=== PATIENT | male | born 2000 | race Hispanic/Latino ===

== ENCOUNTER 2021-01-02 03:36 | Emergency (ER) | payer OTHER ==
[2021-01-02] MEDS ORDERED: IOHEXOL-350 75 ML VIAL IV ONE (04:08)
[2021-01-02 04:13] LABS: BASOPHILS % (AUTO) 0.5 % (0.0-5.0); HEMATOCRIT 46.5 % (42-54); LYMPHOCYTES % (AUTO) 10.7 % (21.0-51.0); MEAN CORPUSCULAR HEMOGLOBIN 30.4 pg (27.0-33.0); MEAN CORPUSCULAR HGB CONC 34.4 g/dL (32.0-36.0); MEAN CORPUSCULAR VOLUME 88.4 fL (80-100); MONOCYTES % (AUTO) 3.8 % (3.0-13.0); NEUTROPHILS % (AUTO) 83.2 % (40.0-77.0); PLATELET COUNT (AUTO) 283 K/uL (130-400); RED BLOOD CELL COUNT(AUTO) 5.26 MIL/uL (4.50-6.20); RED CELL DISTRIBUTION WIDTH 12.1 % (11.0-15.5); WHITE BLOOD COUNT (AUTO) 22.9 K/uL (4.8-10.8)
[2021-01-02 04:21] LABS: CREATININE 1.1 mg/dL (0.5-1.5); POTASSIUM 3.7 mmol/L (3.5-5.1)
[2021-01-02 04:25] LABS: ALBUMIN 4.7 g/dL (3.5-5.0); BILIRUBIN,TOTAL 0.9 mg/dL (0.2-1.0); TOTAL PROTEIN, SERUM 8.1 g/dL (6.0-8.3)
== END 2021-01-02 07:59 | disposition home or self-care (01) ==
LOC: EDH 03:36
DX: S90.02XA Contusion of left ankle, initial encounter (principal); S90.01XA Contusion of right ankle, initial encounter; S80.12XA Contusion of left lower leg, initial encounter; S80.11XA Contusion of right lower leg, initial encounter; W18.39XA Other fall on same level, initial encounter; Y93.39 Activity, other involving climbing, rappelling and jumping off; Y92.89 Other specified places as the place of occurrence of the external cause; Y99.8 Other external cause status
CPT/HCPCS: 36415; 70450; 71250; 72125; 73590 ×2; 73620 ×2; 74176; 80053; 85025; 86850; 86900; 86901; 96374; 99285; J1885; Q9967

== ENCOUNTER 2021-08-18 09:28 | Emergency (ER) | payer SELFPAY ==
[~2021-08-18] VITALS: Ht 157.5 cm; Wt 63.5 kg
[2021-08-18] MEDS ORDERED: AZITHROMYCIN 250 MG TABLET PO ONE (10:00)
[2021-08-18] MEDS ORDERED: CEFTRIAXONE 1G VIAL IM SCH (10:00)
[2021-08-18] MEDS ORDERED: LIDOCAINE HCL-MPF 1% 2ML VIAL ONE (10:12)
[2021-08-18 10:35] LABS: APPEARANCE,URINE Cloudy (CLEAR); BILIRUBIN,URINE Negative (NEGATIVE); COLOR,URINE Yellow (YELLOW); GLUCOSE, URINE (UA) Negative (NEGATIVE); KETONES,URINE Negative (NEGATIVE); LEUKOCYTE ESTERASE ,URINE Large (NEGATIVE); NITRATE,URINE Negative (NEGATIVE); OCCULT BLOOD,URINE Trace (NEGATIVE); PH,URINE 8.5 (5.0-8.0); PROTEIN,URINE Negative (NEGATIVE); UROBILINOGEN,URINE 0.2 mg/dL (0.2-1.0)
[2021-08-18] MEDS ORDERED: DOXY100T21 PO (10:36)
[2021-08-18] MEDS ORDERED: PHEN-847 PO (10:36)
[2021-08-18 11:07] LABS: BACTERIA,URINE Rare /HPF (None Seen); SQUAMOUS EPITHELIAL CELL,UR None Seen /HPF (0-2)
[2021-08-18 11:13] VITALS: BP 125/78
[2021-08-20 18:09] LABS: CHLAMYDIA DNA N.A.AMPLIFY Negative (Negative)
== END 2021-08-18 11:14 | disposition home or self-care (01) ==
LOC: EDH 09:28
DX: N34.2 Other urethritis (principal)
CPT/HCPCS: 81001; 87088; 87486; 87797; 96372; 99283; J0696; J3490